=== PATIENT | male | born 1990 | race Caucasian/White ===

== ENCOUNTER 2020-06-22 22:36 | Emergency (ER) | payer OTHER, SELFPAY ==
[2020-06-22 23:25] VITALS: BP 159/91; PULSE 90; RESP 20; TEMP 37.1; O2SAT 100; BMI 19.2
--- NOTE | 2020-06-22 23:27 | ED.DENTAL ---
HPI - Dental/Oral General Chief complaint: Dental/Oral Stated complaint: dental pain Time Seen by Provider: 06/23/20 00:00 Source: patient Mode of arrival: ambulatory Limitations: no limitations History of Present Illness HPI Narrative: 30-year-old male with past medical history of dental abscesses presents with dental pain and abscess the right lower jaw. Pain started approximately 3 days ago but swelling increased over the past day. Does not have a dentist, and is in 10/10 pain. He does not describe any fevers, chills, nausea, vomiting, chest pain or pressure, palpitations, shortness breath, or edema. MD Complaint: tooth pain Teeth map: 1. Onset (ago): day(s) (3) Duration: constant Severity: severe Severity scale (1-10): 10 Relieving factors: nothing Exacerbating factors: chewing, cold and heat Context: history of dental caries and poor dental care Associated symptoms: gum swelling Treatment prior to arrival: oral analgesic Related Data Previous Rx's Medication Instructions Recorded clindamycin HCl 150 mg PO TID 10 Days #30 cap 06/23/20 clindamycin HCl 300 mg PO Q8H 10 Days #30 cap 06/23/20 ketorolac 10 mg PO TID PRN #30 tab 06/23/20 Allergies Allergy/AdvReac Type Severity Reaction Status Date / Time amoxicillin [AMOXICILLIN] Allergy Intermediate RASH Verified 06/22/20 23:30 sulfamethoxazole Allergy Shortness Verified 06/22/20 23:30 [From Bactrim] of Breath trimethoprim [From Bactrim] Allergy Shortness Verified 06/22/20 23:30 of Breath Review of Systems Review of Systems: Constitutional: No Fever, No Chills ENT/Mouth: No swallowing difficulty, no change in voice, positive dental pain, positive jaw pain, positive facial swelling Eyes: No Eye Pain, No Swelling Cardiovascular: No Chest Pain, No SOB Respiratory: No Cough, No Sputum, No Wheezing, No Smoke Exposure, No Dyspnea Gastrointestinal: No Nausea, No Vomiting, No Diarrhea Genitourinary: No Dysuria Musculoskeletal: No Myalgias Skin: No rash Neuro: No Weakness, No Numbness, No Headache Yes all other systems are reviewed and are negative PMFSH Past Medical History Attestation statement: The following information was validated with the patient. Source: old records reviewed Social History Social History Alcohol intake: never Smoking Status: Current every day smoker Use of substances other than those prescribed or required for medical reasons: No Any prior treatment program specific to substance use: No Advance Directives: No Physical Exam Vital Signs: Vital Signs: Last Vital Signs Temp 98.7 F 06/22/20 23:25 Pulse 90 06/22/20 23:25 Resp 20 06/22/20 23:25 BP 159/91 H 06/22/20 23:25 Pulse Ox 100 06/22/20 23:25 Body Mass Index 19.2 Appearance: Alert. Oriented X3. Moderate distress. Eyes: Pupils equal, round and reactive to light. ENT: Pharynx normal. Right-sided facial swelling, dental caries and abscess noted to tooth number 31. Neck: Normal inspection. Neck supple. CVS: Normal heart rate and rhythm. Pulses normal. Respiratory: No respiratory distress. Breath sounds normal. Abdomen: Soft and nontender. Skin: Skin warm and dry. Normal skin color. Normal skin turgor. Extremities: No lower extremity edema. Neuro: No motor deficit. No sensory deficit. Course Course Course Narrative: 30-year-old male with past medical history of dental caries and abscess presents with dental abscess. Will treat with clindamycin as he is allergic to Augmentin and amoxicillin, give Motrin and Tylenol. Draining of abscess was attempted, with 10 mL of purulent drainage aspirated. Patient tolerated procedure well. Patient understands that he must follow-up with a dentist, will give clindamycin 450 mg b.i.d. for 10 days. Patient verbalized understanding of and agrees plan of care discharge home. MDM - Dental/Oral Differential Diagnosis Differential diagnosis: Likely gingival abscess, dental caries, toothache, dental abscess and fracture of tooth Medical Records Attestation: I reviewed the patient's medical records. Discharge Plan Discharge Clinical Impression: Dental caries, Dental abscess Patient Disposition: Home, Self-Care Instructions: Dental Abscess (ED), Toothache (ED) Additional Instructions: You were evaluated for dental abscess. Please take clindamycin 450 mg 3 times a day as directed. This medication is an antibiotic. Please use Toradol as needed for pain management. Do not use Motrin (Advil, Motrin and ibuprofen are the same medication) or Aleve while taking toradol. Please follow up with a dentist. Thank you for choosing this emergency department for evaluation. Please follow-up with primary care physician as needed. Return to the emergency department for any new, concerning, or worsening symptoms. Prescriptions: New ketorolac 10 mg tablet 10 mg PO TID PRN (Reason: pain) Qty: 30 RF: 0 clindamycin HCl 300 mg capsule 300 mg PO Q8H 10 Days Qty: 30 RF: 0 clindamycin HCl 150 mg capsule 150 mg PO TID 10 Days Qty: 30 RF: 0 Interventions: ED Discharge Assessment Last Done: 06/23/20 01:02 Discharge Date/Time: 06/23/20 01:05
[2020-06-22] MEDS: Acetaminophen 325 MG TABLET 975 MG PO (23:39)
[2020-06-22] MEDS: Ibuprofen 600 MG TABLET PO (23:39)
[2020-06-23] MEDS: Ketorolac Tromethamine 60 MG/2 ML VIAL IM (00:50)
[2020-06-23] MEDS: Lidocaine HCl 2 % MPF 5 ML VIAL SUBCUT (00:55)
--- NOTE | 2020-06-23 01:02 | PC.NURSE ---
MOD AMOUNT OF BLOOD AND PUSS DRAINED FROM ABSCESS
== END 2020-06-23 01:05 | disposition home or self-care (01) ==
PROVIDERS: Emergency Provider Student in an Organized Health Care Education/Training Program
DX: K02.9 Dental caries, unspecified (principal); K04.7 Periapical abscess without sinus
CPT/HCPCS: 96372; 99284; J1885

== ENCOUNTER 2021-09-29 15:25 | Emergency (ER) | payer OTHER, SELFPAY ==
[2021-09-29 15:30] VITALS: BP 151/67; PULSE 95; RESP 16; TEMP 36.9; O2SAT 99; BMI 24.3
== END 2021-09-29 19:08 | disposition left against medical advice (07) ==
PROVIDERS: Emergency Provider Emergency Medicine
DX: L03.114 Cellulitis of left upper limb (principal)
CPT/HCPCS: 99281; 99282

== ENCOUNTER 2022-05-19 14:43 | Emergency (ER) | payer OTHER, SELFPAY ==
[2022-05-19 14:44] VITALS: BP 159/91; PULSE 87; RESP 18; O2SAT 97; BMI 29.5
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
--- NOTE | 2022-05-19 16:14 | PC.NURSE ---
carli cisse . VSS . Went over discharge instructions as ordered by provider . patient has questions at this time .
== END 2022-05-19 16:15 | disposition home or self-care (01) ==
PROVIDERS: Emergency Provider Student in an Organized Health Care Education/Training Program; PCP Internal Medicine
DX: Z04.1 Encounter for examination and observation following transport accident (principal); Z02.79 Encounter for issue of other medical certificate
CPT/HCPCS: 99282; 99284

== ENCOUNTER 2025-04-16 08:55 | Emergency (ER) | payer OTHER, SELFPAY ==
--- NOTE | ~2025-04-16 | XR_ITS ---
EXAMINATION: XR CHEST CLINICAL INFORMATION: cough, sob COMPARISON: None available. TECHNIQUE: Frontal view of the chest was obtained. FINDINGS: The cardiac, hilar, and mediastinal contours are normal. The lungs are clear bilaterally. No pneumothorax or effusion. No focal osseous or soft tissue abnormality. XR/XR chest 1V IMPRESSION: Normal chest. Electronically signed by: Yrn Griggs MD 04/16/2025 09:48 AM [facility]
[2025-04-16 08:58] VITALS: BP 146/80; PULSE 70; O2SAT 100
[2025-04-16 09:03] VITALS: BP 154/87; PULSE 67; RESP 20; TEMP 36.7; O2SAT 99; BMI 32.6
--- NOTE | 2025-04-16 09:16 | ED.NAVMDI ---
HPI - Nausea/Vomiting/Diarrhea General Chief complaint: Nausea/Vomiting/Diarrhea Stated complaint: N/V XD PER EMS Time Seen by Provider: 04/16/25 09:10 Source: patient and family ( at bedside) Mode of arrival: EMS Limitations: no limitations History of Present Illness ED Provider: CRISTOBAL Gonzalez HPI Narrative: 34-year-old male with medical history of HIV on ART therapy, opiate use disorder in remission for 3 years, presents to the ED due to 2 days of nausea, vomiting, diarrhea with chills. Patient's is at the bedside and states he had a cold a few days ago without GI symptoms. Patient states he has had a productive cough with nasal congestion and sensation of SOB while coughing over the past 5 days. Patient states he has been trying to stay hydrated but has been vomiting liquid up. Patient reports several episodes of watery yellow diarrhea and vomit per day. Patient is on Methadone therapy but has not been able to take his dose today due to vomiting. Patient states he does smoke marijuana daily. Patient states he is homeless at this time. Denies chest pain, headache, visual changes, urinary symptoms Related Data Previous Rx's ?Medication ?Instructions ?Recorded clindamycin HCl 150 mg capsule 150 mg PO TID 10 days #30 caps 06/23/20 clindamycin HCl 300 mg capsule 300 mg PO Q8H 10 days #30 caps 06/23/20 ketorolac 10 mg tablet 10 mg PO TID PRN pain #30 tabs 06/23/20 ondansetron HCl 4 mg tablet 4 mg PO Q8H 3 days #9 tabs 04/16/25 Allergies Allergy/AdvReac Type Severity Reaction Status Date / Time amoxicillin (AMOXICILLIN) Allergy Intermediate RASH Verified 04/16/25 09:05 sulfamethoxazole (From Allergy Shortness Verified 04/16/25 09:05 Bactrim) of Breath trimethoprim (From Bactrim) Allergy Shortness Verified 04/16/25 09:05 of Breath Review of Systems Review of Systems: Yes all other systems are reviewed and are negative PMFSH Past Medical History Attestation statement: The following information was validated with the patient. Source: old records reviewed, obtained from family and nursing notes reviewed Social History Social History Alcohol intake: never Physical Exam Vital Signs: Vital Signs: Last Vital Signs Temp 98.2 F 04/16/25 13:21 Pulse 64 04/16/25 13:21 Resp 16 04/16/25 13:21 BP 124/65 04/16/25 13:21 Pulse Ox 97 04/16/25 13:21 O2 Del Method Room Air 04/16/25 13:21 BMI result Body Mass Index 32.6 GENERAL APPEARANCE: ?AxOx4, nontoxic appearing, no acute distress. HEENT: ?NC, AT. MMM. EOMI, clear conjunctiva, oropharynx clear. NECK: ?Supple without lymphadenopathy.? No stiffness or restricted ROM. HEART:? Normal rate and regular rhythm, normal S1/S2, no m/r/g LUNGS:? Ronchi throughout all lung kellogg, mild expiratory wheeze on the L side lung bases. ABDOMEN: ?Soft, nondistended, no rigidity, negative Finley's sign, no rebound tenderness, very mild tenderness to palpation of diffuse abdomen BACK: No CVAT, no obvious deformity. EXTREMITIES: ?Without cyanosis, clubbing or edema. NEUROLOGICAL: ?Grossly nonfocal. Alert and oriented, moving all 4 extremities. Skin: ?Warm and dry without any rash. Medications Administered Discontinued Medications Generic Name Dose Route Start Last Admin Trade Name Freq PRN Reason Stop Dose Admin Droperidol 1.25 mg 04/16/25 09:40 04/16/25 11:36 Droperidol 5 Mg/2 Ml Vial IVPUSH 04/16/25 09:41 1.25 mg ONCE ONE Administration Lactated Ringer's 1,000 mls @ 999 mls/hr 04/16/25 09:16 04/16/25 12:55 Lr IV 04/16/25 10:16 Infused .Q1H1M ONE Infusion Ondansetron HCl 4 mg 04/16/25 09:16 04/16/25 10:09 Ondansetron Odt 4 Mg Tab.Rapdis TRANSLINGU 04/16/25 09:17 Not Given ONCE ONE Medical Decision Making Medical Decision Making MDM Narrative: 34-year-old male with medical history of HIV on ART therapy, opiate use disorder in remission for 3 years, presents to the ED due to 2 days of nausea, vomiting, diarrhea with chills and 5 days of productive cough and nasal congestion. Patients sick with cold symptoms. Patient does smoke marijuana, but denies his symptoms are related. Multiple episodes of yellow watery diarrhea and vomiting per day. VS on initial observation- BP 154/87, pulse rate of 67, respiratory rate of 20, afebrile with oral temp of 98.1?, O2 saturation 99% on room air. On physical exam, lungs with ronchi throughout all lung kellogg, mild expiratory wheeze of R lower lung base, no increased work of breathing noted, no accessory muscle use. Cardiac exam with normal rate and rhythm without murmurs/ rubs/ gallops. Abdomen is soft, nondistended, no rigidity, negative Finley's sign, no rebound tenderness, no overlying skin changes, mild diffuse tenderness throughout the abdomen on palpation Plan: Labs, CXR - Medicated with 1L IV fluids, 4mg zofran, 1.25mg IV droperidol labs without leukocytosis /leukopenia, no evidence of anemia, mildly elevated AST at 39, no electrolyte abnormalities. Viral serology negative CXR WNL Patient with 2 days of nausea vomiting, 5 days of cough and nasal congestion without sinus pain, headache, or visual changes. Patients with same URI symptoms last week. No leukocytosis/ leukopenia on lab work, patient is afebrile, with 2 days of symptoms no indication for antibiotics at this time. Patient was medicated with 1 L IV fluids, 4 mg Zofran, 1.25 mg IV droperidol With significant improvement of his symptoms. Additionally, patient states he was able to take his methadone dose when his nausea and vomiting subsided. Labs without leukocytosis / leukopenia, patient with 2 days of symptoms, no indication for antibiotic therapy at this time. I am unsure if his nausea and vomiting is correlated to his viral symptoms, or may be cyclical vomiting due to marijuana use With his symptoms worsening today as he vomited after taking his methadone dose yesterday and was able to take his methadone dose today due to nausea and vomiting.. Patients does state that he bought marijuana with an increased THC count. Patient is tolerating p.o. with preet sharon and crackers while in the department. I counseled patient to have a bland diet at this time and advance as tolerated. Patient will be discharged home with Zofran that he can manage for his nausea. I counseled patient to follow up with his primary care doctor to ensure resolution of his symptoms. I counseled patient on strict return precautions. Patient feels well enough to go home for self-care at this time. Patient and his are in agreement of the plan. VS on reassessment - BP has improved is now 124/65, pulse rate of 64, respiratory rate of 16, afebrile with oral temp of 98.2?, O2 saturation 97% on room air. Differential Diagnosis Differential Diagnoses: The differential diagnosis associated with the presentation includes Viral illness COVID Flu gastritis cyclical vomiting Admission/Observation Consideration of admission/observation: Escalation of care including admission/observation considered Lab Data MDM Lab Attestation statement: I reviewed the patient's lab results. 04/16/25 11:30 04/16/25 11:30 Labs: Lab Results 04/16/25 04/16/25 Range/Units 09:52 11:30 WBC 10.5 (4.8-10.8) X10*3/uL RBC 4.78 (4.60-5.80) X10*6/uL Hgb 15.1 (14.0-18.0) g/dl Hct 43.7 (42.0-52.0) % MCV 91.4 (80.0-98.0) fL MCH 31.6 (27.0-33.0) pg MCHC 34.6 (31.0-36.0) g/dl RDW 12.9 (11.0-16.0) % Plt Count 211 (160-400) X10*3/uL MPV 9.7 (9.4-12.4) fL Immature Gran % (Auto) 0.3 (0.0-0.4) % Neut % (Auto) 85.4 H (45-73) % Lymph % (Auto) 12.6 L (20-40) % Grand % (Auto) 1.5 L (2-11) % Eos % (Auto) 0.0 (0-4) % Baso % (Auto) 0.2 (0-2) % Lymph # (Auto) 1.3 (1.2-4.9) X10*3/uL Grand # (Auto) 0.2 (0.1-1.2) X10*3/uL Eos # (Auto) 0.0 (0.0-0.4) X10*3/uL Baso # (Auto) 0.0 (0.0-0.2) X10*3/uL Abs Immat Gran (auto) 0.03 (0.00-0.03) X10*3/uL Absolute Neuts (auto) 9.0 H (2.0-8.3) x10*3/uL Absolute Nucleated RBC 0.000 (0.0-0.012) X10*3/uL Nucleated RBC % (auto) 0.0 (0.0-0.2) /100WBC Sodium 138 (135-145) mmol/L Potassium 4.9 (3.3-5.1) mmol/L Chloride 108 (96-108) mmol/L Carbon Dioxide 21 L (22-29) mmol/L Anion Gap 14 (12-20) BUN 13 (9-16) mg/dL Creatinine 0.83 (0.5-1.4) mg/dL Estim Creat Clear Calc 172.4 Estimated GFR > 60 Random Glucose 91 (60-115) mg/dL Calcium 9.7 (8.4-10.2) mg/dL Magnesium 1.9 (1.6-2.6) mg/dL Total Bilirubin 0.4 (0.0-1.0) mg/dL AST 39 H (5-37) U/L ALT 17 (0-40) U/L Alkaline Phosphatase 110 (39-117) U/L Total Protein 8.2 H (6.5-8.0) g/dL Albumin 4.5 (3.5-5.0) g/dL Influenza Type A (PCR) NEGATIVE (Negative) Influenza Type B (PCR) NEGATIVE (Negative) RSV RNA Qual (PCR) NEGATIVE (Negative) SARS-CoV-2 RNA (RT-PCR) NEGATIVE (Negative) Independent Interpretation I performed an independent interpretation of an: Plain X-Ray Interpretation: I personally interpreted the CXR Which was negative for consolidations, infiltrates, I agree with the radiologist's interpretation Radiology Impression Discussion of test interpretation with radiology: I have reviewed the radiologist's reading. Radiologist Impression: CXR FINDINGS: The cardiac, hilar, and mediastinal contours are normal. The lungs are clear bilaterally. No pneumothorax or effusion. No focal osseous or soft tissue abnormality. XR/XR chest 1V IMPRESSION: Normal chest. Electronically signed by: Yrn Griggs MD 04/16/2025 09:48 AM [facility] Dictated By: Yrn Griggs MD Signed By: <Electronically signed by Yrn Griggs MD in OV> 04/16/25 0948 Independent Historian Clinical information obtained from an independent historian. History obtained from or confirmed by: Spouse ( significant other at bedside) External Record Review External record reviewed: Inpatient record, Office record and Outpatient record Prescription Management I considered prescription management with: Antibiotic I considered antibiotics for URI symptoms however patient without leukocytosis, symptoms are not worsening, I believe this is a viral illness with residual cough. Chronic Conditions Patient?s care impacted by: Other ( HIV on ART, opiate use disorder in remission for 3 years on methadone therapy) Social Determinants Patient?s care significantly limited by Social Determinants of Health including: Inadequate housing and Other Social Determinant of Health Discharge Plan Discharge Clinical Impression: Nausea & vomiting Patient Disposition: Home, Self-Care Additional Instructions: You were evaluated in the ED today due to 2 days of nausea and vomiting with 5 days of cough and nasal congestion. Your lab work was reassuring as there was no significant elevation your white blood cell count indicative of infection. There was no evidence of anemia or electrolyte imbalance on your labs today. Your chest x-ray was normal. You were medicated with 1 L IV fluids, 4 mg Zofran, and 1.25 mg droperidol with significant improvement of your symptoms. At this time I am unsure if your nausea and vomiting is due to a viral illness, cyclical vomiting from marijuana use, with worsening symptoms since you were unable to take/ keep down your methadone dose yesterday and today. You are being discharged with Zofran that you can use to control your nausea. I recommend that you follow up bland diet at this time including toast, apples, banana, broths and advance your diet as your symptoms improve. Please follow up with your primary care provider please return to the emergency department if you experience worsening vomiting, worsening nausea, inability to keep down liquids, fevers over 100.4?, chest pain, shortness of breath, worsening cough, or any new/worsening / concerning symptoms. Prescriptions: New ondansetron HCl 4 mg tablet 4 mg PO Q8H 3 Days Qty: 9 0RF No Action ketorolac 10 mg tablet 10 mg PO TID PRN (Reason: pain) Qty: 30 0RF clindamycin HCl 300 mg capsule 300 mg PO Q8H 10 Days Qty: 30 0RF clindamycin HCl 150 mg capsule 150 mg PO TID 10 Days Qty: 30 0RF Rx Instructions: clindamycin 450 mg po q8h for 10 days Interventions: ED Discharge Assessment Last Done: 04/16/25 13:21 Discharge Date/Time: 04/16/25 13:22 Print Language: Lithuanian
--- OUTSIDE RECORDS SUMMARY | 2025-04-16 09:40 | XMS_ITS | Clinical Summary ---
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 Name Role Phone Unavailable Primary Care Provider Unavailabl e Immunizations Immunization Administration Dates Next Due Moderna Covid-19 Vaccine 12+ 07/05/2022 Social History Tobacco Use Types Packs/Day Years Used Date Smoking Tobacco: Never Assessed Sex and Gender Information Value Date Recorded Sex Assigned at Male 03/26/2022 10:37 AM EDT Legal Sex Male 10:37 AM EDT Gender Identity Male 07/05/2022 10:02 AM EST Sexual Orientation Bisexual 03/26/2022 10 :37 AM EDT Plan of Treatment Health Maintenance Due Date Last Done Comments Depression Screening 1992 HIV Screening 1992 SDOH Screening 1992 Disability Screening 1992 Alcohol/Substance Use Screening 2004 Tobacco Screening 2004 Family Planning (PISQ) 2007 Hepatitis C Screening 2010 COVID-19 Vaccine ( season) 2025 07/05/2022, 06/12/2021 Influenza Vaccine (#1) 2025 , 07/01/2018, 03/19/2017, Additional history exists DTaP/Tdap/Td Vaccines (5 - Td or Tdap) 09/24/2031 09/23/2021, 09/26/2012, 04/22/2012, Additional history exists Zoster Vaccines (1 of 2) 2042 RSV Patients and Patients Aged 60 years or older (1 - 1-dose 75+ series) 2067 HPV Vaccines Completed 10/06/2012, 03/28, 03/24/2012 Hepatitis A Vaccines Aged Out 03/31/2013, 12/30/2012, 09/26/2012 No longer eligible based on patient's age to complete this topic Pneumococcal Vaccine: Pediatrics (0 to 5 Years) and At-Risk Patients (6 to 49) Years Aged Out 03/31/2013, 12/08/2012 No longer eligibl e based on patient's age to complete this topic Meningococcal Vaccine Aged Out 09/03/2017, 017 No longer eligible based on patient's age to complete this topic Hepatitis B Vaccines Completed 07/01/2018, 03/31/2013, 12/30/2012, Additional history exists HIB Vaccines Aged Out No longer eligi ble based on patient's age to complete this topic IPV Vaccines Aged Out No longer eligi ble based on patient's age to complete this topic Meningococcal B Vaccine Aged Out No l onger eligible based on patient's age to complete this topic RSV under 20 months Aged Out No longe r eligible based on patient's age to complete this topic Rotavirus Vaccines Aged Out No longer eligible based on patient's age to complete this topic Insurance
--- NOTE | 2025-04-16 10:08 | PC.NURSE ---
Pt very hard stick, 3 RNs tried for labs/access, unable to. This RN reaching out about ultrasound guided
[2025-04-16 10:34] LABS: Resp Syncy Virus RNA Qual PCR NEGATIVE (Negative); SARS COV2 PCR INHOUSE NEGATIVE (Negative)
[2025-04-16] MEDS: Lactated Ringers 1,000 ML 999 ML IV (11:34)
[2025-04-16 11:38] VITALS: BP 124/65; PULSE 64; RESP 16; TEMP 36.8; O2SAT 97
[2025-04-16 11:46] LABS: MANUAL DIFF FLAG NO
[2025-04-16 11:49] LABS: Hematocrit 43.7 % (42.0-52.0); Hemoglobin 15.1 g/dl (14.0-18.0); Imm Gran Abs Auto 0.03 X10*3/uL (0.00-0.03); Imm Gran Pct Auto 0.3 % (0.0-0.4); Lymphocytes Absolute Auto 1.3 X10*3/uL (1.2-4.9); Mean Corpuscular HGB Conc 34.6 g/dl (31.0-36.0); Mean Corpuscular Hemoglobin 31.6 pg (27.0-33.0); Mean Corpuscular Volume 91.4 fL (80.0-98.0); NRBC Abs Auto 0.000 X10*3/uL (0.0-0.012); NRBC Pct Auto 0.0 /100WBC (0.0-0.2); Platelet Count 211 X10*3/uL (160-400); Red Blood Count 4.78 X10*6/uL (4.60-5.80); White Blood Count 10.5 X10*3/uL (4.8-10.8)
--- NOTE | 2025-04-16 11:58 | PC.NURSE ---
Meds & labs delayed d/t pt difficulty sticks, multiple RNs attempted to place line, US SOLAR FABRICATION TECHNICIAN Jarrod placed R upper arm IV, difficult blood return. IVF running at this time.
[2025-04-16 12:10] LABS: Alanine Aminotransferase 17 U/L (0-40); Albumin Level 4.5 g/dL (3.5-5.0); Alkaline Phosphatase 110 U/L (39-117); Anion Gap 14 (12-20); Aspartate Amino Transferase 39 U/L (5-37); Blood Urea Nitrogen 13 mg/dL (9-16); Calcium 9.7 mg/dL (8.4-10.2); Carbon Dioxide 21 mmol/L (22-29); Chloride 108 mmol/L (96-108); Creatinine Clr Calc Pharmacy 172.4; Estimated Glomerular Filt Rate > 60; Magnesium 1.9 mg/dL (1.6-2.6); Potassium 4.9 mmol/L (3.3-5.1); Sodium 138 mmol/L (135-145); Total Protein 8.2 g/dL (6.5-8.0)
[2025-04-16 13:21] VITALS: BP 124/65; PULSE 64; RESP 16; TEMP 36.8; O2SAT 97
== END 2025-04-16 13:22 | disposition home or self-care (01) ==
PROVIDERS: Emergency Provider Emergency Medicine
DX: R11.2 Nausea with vomiting, unspecified (principal); R19.7 Diarrhea, unspecified; F12.90 Cannabis use, unspecified, uncomplicated; Z59.00 Homelessness unspecified; Z03.818 Encounter for observation for suspected exposure to other biological agents ruled out
CPT/HCPCS: 36415; 71045; 80053; 83735; 85025; 87637; 99284; J1790; J7120

== ENCOUNTER → 2025-04-16 09:20 | Outpatient (BNV) | payer OTHER, SELFPAY | PROVIDERS: Emergency Provider Emergency Medicine; Visit Provider Radiology Diagnostic Radiology | DX: R05.9 Cough, unspecified (principal); R06.02 Shortness of breath | CPT/HCPCS: 71045 ==